=== PATIENT | male | born 1940 | race Caucasian/White ===

== ENCOUNTER 2021-02-12 03:10 | Inpatient (IN) | payer MEDICARE, BC ==
[~2021-02-12] VITALS: Ht 175.3 cm; Wt 102.3 kg
[2021-02-12 04:38] LABS: BASOPHILS % (AUTO) 0.1 % (0-1); EOSINOPHILS % (AUTO) 0 % (0-6); HEMATOCRIT 36.2 % (42.0-52.0); HEMOGLOBIN 12.7 g/dl (14.0-17.9); LYMPHOCYTES # (AUTO) 1.1 X10'3 (1.1-4.8); LYMPHOCYTES % (AUTO) 10.5 % (21-51); MEAN CORPUSCULAR VOLUME 94.3 FL (78-98); MEAN PLATELET VOLUME 7.6 FL (7.4-10.4); MONOCYTES % (AUTO) 9.6 % (2-12); NEUTROPHILS # (AUTO) 8.4 X10'3 (1.8-7.7); NEUTROPHILS % (AUTO) 79.8 % (42-75); PLATELET COUNT 261 X10'3 (140-440); RED BLOOD COUNT 3.84 X10'6 (4.70-6.10); WHITE BLOOD COUNT 10.6 X10'3 (4.5-11.0)
[2021-02-12 04:52] LABS: ALANINE AMINOTRANSFERASE 49 U/L (12-78); ALBUMIN/GLOBULIN RATIO 0.7 (1.1-1.5); ALKALINE PHOSPHATASE 57 IU/L (46-116); ANION GAP 10 (8-16); ASPARTATE AMINO TRANSFERASE 65 U/L (10-37); BILIRUBIN,TOTAL 0.7 MG/DL (0.1-1.0); BLOOD UREA NITROGEN 17 MG/DL (7-18); BUN/CREATININE RATIO 18.3 (5.4-32.0); CALCIUM 8.4 MG/DL (8.5-10.1); CHLORIDE 95 MMOL/L (99-107); CREATININE 0.93 MG/DL (0.60-1.10); GLUCOSE 116 MG/DL (70-104); POTASSIUM 3.7 MMOL/L (3.5-5.1); SODIUM 130 MMOL/L (135-145); TOTAL CARBON DIOXIDE 24.7 MMOL/L (24-32); TOTAL PROTEIN 7.1 G/DL (6.4-8.2); eGFR 78 ML/MIN
[2021-02-12] MEDS ORDERED: dexamethasone sod phosphate 10mg/ml inj IV STA (05:24)
[2021-02-12] MEDS ORDERED: BENA40TA72 PO (05:59)
[2021-02-12] MEDS ORDERED: CLON1PAT16 TD (05:59)
[2021-02-12] MEDS ORDERED: ALLO100T (05:59)
[2021-02-12] MEDS ORDERED: BACL20TA2 PO (05:59)
[2021-02-12] MEDS ORDERED: FLUT16SP26 NS (05:59)
[2021-02-12] MEDS ORDERED: CARV3.123 PO (05:59)
[2021-02-12] MEDS ORDERED: CELE-85 PO (05:59)
[2021-02-12] MEDS ORDERED: HYDR-4070 PO (06:05)
[2021-02-12] MEDS ORDERED: DESM0.2T31 PO (06:05)
[2021-02-12] MEDS ORDERED: FLUT1DIS10 IH (06:56)
[2021-02-12] MEDS ORDERED: SERT-434 PO (06:56)
[2021-02-12] MEDS ORDERED: MONT-40 PO (06:56)
[2021-02-12] MEDS ORDERED: ALLO300T2 PO (06:56)
[2021-02-12] MEDS ORDERED: CETI10TA15 PO (06:56)
[2021-02-12] MEDS ORDERED: CHOL100046 PO (06:56)
[2021-02-12] MEDS ORDERED: QUET300T20 PO (06:56)
[2021-02-12] MEDS ORDERED: bisacodyl 10mg suppository rectal RC PRN (07:30)
[2021-02-12] MEDS ORDERED: magnesium hydroxide 30ml (MOM) UD suspension PO PRN (07:30)
[2021-02-12] MEDS ORDERED: ALBUTEROL INHALER 1 PUFF/90 MCG INHALER IH PRN (07:30)
[2021-02-12] MEDS ORDERED: mag hydrox/Alum hydrox/simeth 30ml oral suspension PO PRN (07:30)
[2021-02-12] MEDS ORDERED: ondansetron/PF 4mg/2ml inj IV PRN (07:30)
--- NOTE | 2021-02-12 07:30 | NUR ---
Pt incont of stool. Bedding, floor, toilet and pt cleaned and pt with new gown and linens.
[2021-02-12] MEDS ORDERED: iohexol 350MG/ML 100ml bottle IV ONE (07:49)
[2021-02-12] MEDS: docusate sod 100mg capsule PO SCH ×2 (07:51→21:02)
[2021-02-12] MEDS ORDERED: dexamethasone inj 6 MG in dextrose 5%-water 100 ML IV SCH (08:00)
[2021-02-12] MEDS ORDERED: cetirizine 10mg tablet PO PRN (08:30)
[2021-02-12] MEDS: normal saline 1000ml 1,000 ML IV SCH ×2 (09:00→17:29)
[2021-02-12] MEDS: heparin, porcine 5000 units/ml vial SQ SCH ×3 (09:00→23:50)
[2021-02-12] MEDS: allopurinol 300 MG tablet PO SCH (09:19)
[2021-02-12] MEDS: cholecalciferol (vitamin D3) 1,000 unit (25mcg) tablet PO SCH (09:19)
[2021-02-12] MEDS: sertraline 50mg tablet PO SCH (09:19)
[2021-02-12 09:24] LABS: C-REACTIVE PROTEIN 10.31 MG/DL (0.0-0.5); LACTATE DEHYDROGENASE 340 U/L (85-227)
[2021-02-12 09:25] LABS: HEMOGLOBIN A1C 5.5 % (4.5-6.2)
[2021-02-12] MEDS ORDERED: CARV6.253 PO (09:43)
[2021-02-12] MEDS ORDERED: cloNIDine 0.2 MG/24 HR patch (7 day patch) TD SCH (09:50)
[2021-02-12] MEDS ORDERED: baclofen 10mg tablet PO PRN (09:55)
[2021-02-12 10:09] LABS: D-DIMER 0.75 MG/L FEU (0-0.50); PARTIAL THROMBOPLASTIN TIME 32 SECONDS (22-32)
[2021-02-12] MEDS: celeCOXIB 100mg capsule PO SCH ×2 (12:11→20:59)
[2021-02-12] MEDS: carvedilol 6.25mg tablet PO SCH ×2 (12:11→20:59)
[2021-02-12 19:23] LABS: CLARITY,URINE CLEAR (Clear); COLOR,URINE YELLOW (Yellow); UA COLLECTION TYPE CLN CATCH MIDSTREAM
[2021-02-12 19:24] LABS: GLUCOSE, URINE NEGATIVE (Neg); KETONES,URINE NEGATIVE (Neg); LEUKOCYTE ESTERASE ,URINE NEGATIVE (Neg); NITRITES, URINE NEGATIVE (Neg); OCCULT BLOOD,URINE TRACE-LYSED (Neg); PROTEIN,URINE 100 mg/dl (Neg); UROBILINOGEN,URINE 0.2 E.U/dL (0.2-1.0)
[2021-02-12 19:37] LABS: BACTERIA,URINE NONE SEEN /HPF (Neg); MUCUS STRANDS FEW /LPF (Neg); RBC,URINE 0-2 /HPF (0-2); SQUAMOUS EPITHELIAL CELL,UR NONE SEEN /LPF (FEW); WBC,URINE 0-4 /HPF (0-4)
[2021-02-12 19:38] LABS: COARSE GRANULAR CAST 0-3 /LPF (NEGATIVE)
[2021-02-12] MEDS ORDERED: hydrALAZINE 25 MG tablet PO SCH (20:00)
[2021-02-12] MEDS ORDERED: temazepam 15mg capsule PO PRN (21:00)
[2021-02-12] MEDS ORDERED: quetiapine 100mg tablet PO SCH (21:00)
[2021-02-12] MEDS ORDERED: DESMOPRESSIN ACETATE 0.1 MG TABLET PO SCH (21:00)
[2021-02-12] MEDS ORDERED: montelukast 10mg tablet PO SCH (21:00)
[2021-02-12] MEDS: lisinopril 20mg tablet PO SCH (21:00)
[2021-02-12] MEDS: SALMETEROL IH SCH (21:01)
[2021-02-12] MEDS: FLUTICASONE IH SCH (21:01)
[2021-02-12] MEDS: dexamethasone inj 6 MG in dextrose 5%-water 100 ML IV SCH (21:02)
[2021-02-13] MEDS: normal saline 1000ml 1,000 ML IV SCH (03:30)
--- NOTE | 2021-02-13 07:59 | NUR ---
CLARIFIED WITH THE PATIENT BEFORE ADMINISTERING THE HYDRALAZINE ASKED IF HE TAKES 200 MG OF HYDRALAZINE ? PT STATED THAT HE TAKES HYDRALAZINE 100 MG IN AM AND 100 MG IN EVENING .NOTIFIED THE PHARMACY AND REPORTED THE DOSAGE ERROR.
[2021-02-13] MEDS: docusate sod 100mg capsule PO SCH (08:00)
[2021-02-13] MEDS: FLUTICASONE IH SCH (08:00)
[2021-02-13] MEDS: SALMETEROL IH SCH (08:00)
[2021-02-13] MEDS ORDERED: fluticasone nasal spray 16GM bottle NS SCH (08:00)
[2021-02-13] MEDS ORDERED: hydrALAZINE 25 MG tablet PO SCH (08:00)
[2021-02-13] MEDS: carvedilol 6.25mg tablet PO SCH (08:18)
[2021-02-13] MEDS: celeCOXIB 100mg capsule PO SCH (08:18)
[2021-02-13] MEDS: sertraline 50mg tablet PO SCH (08:19)
[2021-02-13] MEDS: heparin, porcine 5000 units/ml vial SQ SCH (08:19)
[2021-02-13] MEDS: cholecalciferol (vitamin D3) 1,000 unit (25mcg) tablet PO SCH (08:19)
[2021-02-13] MEDS: allopurinol 300 MG tablet PO SCH (08:19)
[2021-02-13] MEDS: lisinopril 20mg tablet PO SCH (08:19)
[2021-02-13] MEDS: dexamethasone inj 6 MG in dextrose 5%-water 100 ML IV SCH (08:20)
[2021-02-13 08:22] LABS: BASOPHILS % (AUTO) 0 % (0-1); EOSINOPHILS % (AUTO) 0 % (0-6); HEMATOCRIT 33.1 % (42.0-52.0); HEMOGLOBIN 11.7 g/dl (14.0-17.9); LYMPHOCYTES % (AUTO) 11.1 % (21-51); MEAN CORPUSCULAR HEMOGLOBIN 33.6 PG (27.0-31.0); MEAN CORPUSCULAR HGB CONC 35.4 g/dL (33.0-36.5); MEAN CORPUSCULAR VOLUME 94.7 FL (78-98); MEAN PLATELET VOLUME 8.2 FL (7.4-10.4); MONOCYTES # (AUTO) 0.5 X10'3 (0-0.9); MONOCYTES % (AUTO) 5.3 % (2-12); NEUTROPHILS # (AUTO) 7.7 X10'3 (1.8-7.7); NEUTROPHILS % (AUTO) 83.6 % (42-75); PLATELET COUNT 243 X10'3 (140-440); RED BLOOD COUNT 3.49 X10'6 (4.70-6.10); RED CELL DISTRIBUTION WIDTH 12.9 % (11.5-14.5); WHITE BLOOD COUNT 9.2 X10'3 (4.5-11.0)
[2021-02-13 08:40] LABS: D-DIMER 0.57 MG/L FEU (0-0.50); PARTIAL THROMBOPLASTIN TIME 30 SECONDS (22-32)
[2021-02-13 08:54] LABS: ALANINE AMINOTRANSFERASE 49 U/L (12-78); ALBUMIN 2.6 G/DL (3.4-5.0); ALBUMIN/GLOBULIN RATIO 0.7 (1.1-1.5); ALKALINE PHOSPHATASE 48 IU/L (46-116); ANION GAP 11 (8-16); ASPARTATE AMINO TRANSFERASE 61 U/L (10-37); BILIRUBIN,TOTAL 0.5 MG/DL (0.1-1.0); BLOOD UREA NITROGEN 18 MG/DL (7-18); C-REACTIVE PROTEIN 6.69 MG/DL (0.0-0.5); CALCIUM 8.4 MG/DL (8.5-10.1); CHLORIDE 100 MMOL/L (99-107); CREATININE 0.72 MG/DL (0.60-1.10); GLUCOSE 158 MG/DL (70-104); LACTATE DEHYDROGENASE 287 U/L (85-227); POTASSIUM 3.9 MMOL/L (3.5-5.1); SODIUM 134 MMOL/L (135-145); TOTAL CARBON DIOXIDE 22.8 MMOL/L (24-32); TOTAL PROTEIN 6.5 G/DL (6.4-8.2); eGFR > 90 ML/MIN
[2021-02-13] MEDS ORDERED: AZIT500T2 PO (10:32)
[2021-02-13] MEDS ORDERED: ALBU6.7H9 IH (10:32)
[2021-02-13] MEDS ORDERED: PRED10TA PO (10:32)
[2021-02-13 12:29] VITALS: BP 107/64
== END 2021-02-13 12:29 | disposition home or self-care (01) | DRG 177 ==
LOC: ER 03:12 → ED HOLD 07:39
PROVIDERS: ADMIT Family Medicine; ATTEND Family Medicine
PROC: B32T1ZZ Computerized Tomography (CT Scan) of Left Pulmonary Artery using Low Osmolar Contrast (ICD-10-PCS; principal; 2021-02-12)
PROC: B3201ZZ Computerized Tomography (CT Scan) of Thoracic Aorta using Low Osmolar Contrast (ICD-10-PCS; 2021-02-12)
PROC: B32S1ZZ Computerized Tomography (CT Scan) of Right Pulmonary Artery using Low Osmolar Contrast (ICD-10-PCS; 2021-02-12)
DX: U07.1 COVID-19 (principal); J96.21 Acute and chronic respiratory failure with hypoxia; J12.82 Pneumonia due to coronavirus disease 2019; J44.0 Chronic obstructive pulmonary disease with (acute) lower respiratory infection; E87.1 Hypo-osmolality and hyponatremia; J44.1 Chronic obstructive pulmonary disease with (acute) exacerbation; F32.A Depression, unspecified; I10 Essential (primary) hypertension; F17.200 Nicotine dependence, unspecified, uncomplicated; R19.7 Diarrhea, unspecified; J30.9 Allergic rhinitis, unspecified; K80.20 Calculus of gallbladder without cholecystitis without obstruction; M10.9 Gout, unspecified; E55.9 Vitamin D deficiency, unspecified; F12.90 Cannabis use, unspecified, uncomplicated; R59.0 Localized enlarged lymph nodes; R74.01 Elevation of levels of liver transaminase levels; Z88.0 Allergy status to penicillin; Z88.2 Allergy status to sulfonamides; Z88.8 Allergy status to other drugs, medicaments and biological substances; Z71.6 Tobacco abuse counseling
CPT/HCPCS: 36415; 71045; 71275; 80053; 81001; 83036; 83605; 83615; 83880; 84145; 84484; 85025; 85379; 85610; 85730; 86140; 87040; 87635; 93005; 96374; 99285; C9803; G0378; J1100; J1644; J7030; J7060; Q9967

== ENCOUNTER 2021-07-10 08:03 | Emergency (ER) | payer MEDICARE, BC ==
[~2021-07-10] VITALS: Ht 172.7 cm; Wt 104.5 kg
[~2021-07-10 08:03] MED LIST: ALBU6.7H9 IH; ALLO300T2 PO; BACL20TA2 PO; BENA40TA72 PO; CARV6.253 PO; CELE-85 PO; CETI10TA15 PO; CHOL100046 PO; CLON1PAT16 TD; DESM0.2T31 PO; FLUT16SP26 NS; FLUT1DIS10 IH; HYDR-4070 PO; MONT-40 PO; PRED10TA PO; QUET300T20 PO; SERT-434 PO
[2021-07-10 08:50] LABS: BASOPHILS % (AUTO) 0.2 % (0-1); EOSINOPHILS # (AUTO) 0.1 X10'3 (0-0.9); EOSINOPHILS % (AUTO) 1.3 % (0-6); HEMATOCRIT 39.8 % (42.0-52.0); HEMOGLOBIN 14.1 g/dl (14.0-17.9); LYMPHOCYTES # (AUTO) 1.9 X10'3 (1.1-4.8); LYMPHOCYTES % (AUTO) 18.9 % (21-51); MEAN CORPUSCULAR HEMOGLOBIN 32.9 PG (27.0-31.0); MEAN CORPUSCULAR HGB CONC 35.5 g/dL (33.0-36.5); MEAN CORPUSCULAR VOLUME 92.9 FL (78-98); MEAN PLATELET VOLUME 8.2 FL (7.4-10.4); MONOCYTES # (AUTO) 0.7 X10'3 (0-0.9); MONOCYTES % (AUTO) 7.1 % (2-12); NEUTROPHILS # (AUTO) 7.2 X10'3 (1.8-7.7); NEUTROPHILS % (AUTO) 72.5 % (42-75); PLATELET COUNT 249 X10'3 (140-440); RED BLOOD COUNT 4.28 X10'6 (4.70-6.10); RED CELL DISTRIBUTION WIDTH 13.3 % (11.5-14.5); WHITE BLOOD COUNT 9.9 X10'3 (4.5-11.0)
[2021-07-10 09:02] LABS: ALANINE AMINOTRANSFERASE 33 U/L (12-78); ALBUMIN 4.1 G/DL (3.4-5.0); ALBUMIN/GLOBULIN RATIO 1.1 (1.1-1.5); ALKALINE PHOSPHATASE 60 IU/L (46-116); ASPARTATE AMINO TRANSFERASE 19 U/L (10-37); BILIRUBIN,TOTAL 0.5 MG/DL (0.1-1.0); BLOOD UREA NITROGEN 15 MG/DL (7-18); BUN/CREATININE RATIO 17.2 (5.4-32.0); CALCIUM 9.3 MG/DL (8.5-10.1); CHLORIDE 100 MMOL/L (99-107); CREATININE 0.87 MG/DL (0.60-1.10); GLUCOSE 140 MG/DL (70-104); TOTAL CARBON DIOXIDE 22.3 MMOL/L (24-32); TOTAL PROTEIN 7.7 G/DL (6.4-8.2); eGFR 85 ML/MIN
[2021-07-10 09:45] LABS: ANION GAP 11 (8-16); SODIUM 133 MMOL/L (135-145)
[2021-07-10 09:47] LABS: POTASSIUM 3.6 MMOL/L (3.5-5.1)
[2021-07-10] MEDS ORDERED: LORazepam 2 mg/ml vial IV ONE (10:15)
[2021-07-10] MEDS ORDERED: iohexol 350MG/ML 100ml bottle IV ONE ×2 (11:34→16:12)
[2021-07-10] MEDS ORDERED: LORA-269 PO (13:22)
[2021-07-10 13:36] VITALS: BP 169/98
== END 2021-07-10 13:39 | disposition home or self-care (01) ==
LOC: ER 08:04
DX: R07.89 Other chest pain (principal); F41.9 Anxiety disorder, unspecified; I10 Essential (primary) hypertension; R11.2 Nausea with vomiting, unspecified; R42 Dizziness and giddiness; R20.2 Paresthesia of skin; J44.9 Chronic obstructive pulmonary disease, unspecified; F12.90 Cannabis use, unspecified, uncomplicated; Z79.899 Other long term (current) drug therapy; Z88.0 Allergy status to penicillin; Z88.2 Allergy status to sulfonamides; Z88.8 Allergy status to other drugs, medicaments and biological substances
CPT/HCPCS: 36415; 71045; 71275; 80053; 83880; 84484; 85025; 96374; 99285; J2060; Q9967